=== PATIENT | female | born 1995 | race African-American/Black ===

== ENCOUNTER 2020-10-18 03:51 | Inpatient (IN) | payer MEDICAID, OTHER ==
[2020-10-18] MEDS ORDERED: ePHEDrine SULFATE 50 MG/1 ML INJ IV PRN ×2 (06:07→07:26)
[2020-10-18] MEDS ORDERED: MINERAL OIL 30 ML ORAL LIQD PO PRN (06:07)
[2020-10-18] MEDS ORDERED: LIDOCAINE (2%) 20 MG/1 ML VIAL 20 ML MDV INFILTRATI ONE (06:07)
[2020-10-18] MEDS ORDERED: AMPICILLIN/NS 2 GM/100 ML 2 GM/100 ML BAG IV ONE (06:07)
[2020-10-18] MEDS ORDERED: BUTORPHANOL 2 MG/1 ML INJ IV PRN (06:28)
[2020-10-18] MEDS ORDERED: fentaNYL 100 MCG/2 ML INJ IV PRN (06:30)
[2020-10-18 06:35] LABS: Mean Corpuscular HGB Conc 36 % (30-34); Mean Corpuscular Volume 89 fl (79-97); Platelet Count 155 K/mm3 (140-440); Red Blood Count 4.38 M/mm3 (3.65-5.03); Red Cell Distribution Width 13.8 % (13.2-15.2)
[2020-10-18] MEDS: LACTATED RINGERS 1,000 ML IV SCH ×5 (06:44→19:47)
[2020-10-18] MEDS ORDERED: ONDANSETRON 4 MG/2 ML INJ IV PRN ×3 (07:26→22:25)
[2020-10-18] MEDS ORDERED: NalbUPHINE 10 MG/1 ML INJ IV PRN (07:26)
[2020-10-18] MEDS ORDERED: LACTATED RINGERS 250 ML IV SOLN IV ONE (07:26)
[2020-10-18] MEDS ORDERED: diphenhydrAMINE 50 MG/ML VIAL IV PRN (07:26)
[2020-10-18] MEDS ORDERED: NALOXONE 2 MG/2 ML INJ IV PRN (07:26)
[2020-10-18] MEDS: fentaNYL-BUPIV 2 MCG/ML-0.125% 200 MCG/100 ML BAG EPIDURAL SCH ×2 (08:04→16:03)
--- NOTE | 2020-10-18 08:10 | Anesthesia Consultation ---
Anesthesia Consult and Med Hx Date of service: 10/18/20 - Airway Anesthetic Teeth Evaluation: Good ROM Head & Neck: Adequate Mental/Hyoid Distance: Adequate Mallampati Class: Class I Intubation Access Assessment: Good - Pulmonary Exam CTA: Yes - Cardiac Exam Cardiac Exam: RRR - Pre-Operative Health Status ASA Pre-Surgery Classification: ASA2 Proposed Anesthetic Plan: Epidural - Pulmonary Hx Smoking: No Hx Asthma: No COPD: No Hx Pneumonia: No Hx Sleep Apnea: No - Cardiovascular System Hx Hypertension: No Hx Heart Attack/AMI: No Hx Angina: No - Central Nervous System Hx Seizures: No Hx Psychiatric Problems: No - Gastrointestinal Hx Gastroesophageal Reflux Disease: No - Endocrine Hx Renal Disease: No Hx End Stage Renal Disease: No Hx Liver Disease: No Hx Insulin Dependent Diabetes: No Hx Non-Insulin Dependent Diabetes: No Hx Hypothyroidism: No Hx Hyperthyroidism: No - Hematic Hx Anemia: No Hx Sickle Cell Disease: No - Other Systems Hx Alcohol Use: No
--- NOTE | 2020-10-18 08:11 | Progress Note ---
Labor Epidural - Labor Epidural Start Time: 07:34 Stop Time: 07:47 Performed by:: JOSEPH GRUBBS ([facility]) Procedure: Patient is requesting epidural for labor and pain. H&P, labs were reviewed. Patient IDed, H&P reviewed, all questions and concerns were answered, and consent was signed. Timeout was performed at bedside. Patient in sitting position. Sterile prep and drape was performed. 3ml of 1% lidocaine skin wheal at L[3]- L [4]. 18-gauge Tuohy epidural needle was advanced to loss of resistance with saline technique 5cm. Negative CSF negative blood. Epidural catheter advanced to [10] centimeters. [negative] Aspiration [negative] test dose. Sterile dressing applied. Patient tolerated procedure.
--- NOTE | 2020-10-18 08:15 | Event Note ---
Date: 10/18/20 Assumed care of patient at 08:00 am.
--- NOTE | 2020-10-18 08:26 | Event Note ---
Date: 10/18/20 SVE /-2. Clear fluid. Small amount of bloody show. Category 1 FHR tracing. Contractions every 2 minutes; uterus soft between contractions. Patient has epidural in place.
--- NOTE | 2020-10-18 08:44 | History and Physical Report ---
History of Present Illness Date of examination: 10/18/20 Date of admission: 10/18/20 04:33 Chief complaint: Leaking of water and contractions since 04:00 am today. History of present illness: 25 year old presents with complaint of leaking of water and contractions since 04:00 today. Patient received care at [facility] and records are available. LMP 01/09/2020. EDC 10/15/2020. significant for the following: GBS positive, varicella nonimmune, vitamin D deficiency (supplemented with vitamin D), and size less than dates. labs are as follows: O+, antibody screen negative, rubella immune, varicella nonimmune, hepatitis B surface antigen negative, RPR nonreactive, HIV negative, gonorrhea negative, chlamydia negative, trichomonas negative, pap smear negative, hemoglobin electrophoresis AA, 1 hour sugar test 123, GBS positive. Past History Past Medical History: no pertinent history Past Surgical History: no surgical history [facility] History: denies: abnormal PAP smear, chlamydia, gonorrhea, hepatitis B, hepatitis C, herpes, HIV, syphilis, trichomonas Family/Genetic History: diabetes Social history: lives with family, full code. denies: smoking, alcohol abuse, prescription drug abuse, IV drug use - Obstetrical History Expected Date of Delivery: 10/15/20 Actual Gestation: 40 Week(s) 3 Day(s) : 1 Para: 0 Hx # Term Pregnancies: 0 Number of Pregnancies: 0 Spontaneous Abortions: 0 Induced : 0 Number of Living Children: 0 Medications and Allergies Allergies Allergy/AdvReac Type Severity Reaction Status Date / Time No Known Allergies Allergy Unverified 10/18/20 04:32 Home Medications Medication Instructions Recorded Confirmed Last Taken Type No Known Home Medications [No 10/18/20 10/18/20 Unknown History Reported Home Medications] Active Meds: Active Medications Butorphanol Tartrate (Butorphanol 2 Mg/1 Ml Inj) 1 mg IV Q1H PRN PRN Reason: Labor Pain Diphenhydramine HCl (Diphenhydramine 50 Mg/Ml Vial) 12.5 mg IV Q2H PRN PRN Reason: Itching Ephedrine Sulfate (Ephedrine Sulfate 50 Mg/1 Ml Inj) 10 mg IV Q2M PRN PRN Reason: Hypotension Fentanyl (Fentanyl 100 Mcg/2 Ml Inj) 100 mcg IV Q2H PRN PRN Reason: Labor Pain Last Admin: 10/18/20 06:43 Dose: 100 mcg Documented by: Lactated Ringer's (Lactated Ringers) 1,000 mls @ 125 mls/hr IV DIRECT ANU Last Admin: 10/18/20 07:20 Dose: 999 mls/hr Documented by: Fentanyl/Bupivacaine/Sodium Chlor (Fentanyl-Bupiv 2 Mcg/Ml-0.125%) 200 mcg in 100 mls @ 12 mls/hr EPIDURAL TITR ANU; Protocol Last Admin: 10/18/20 08:04 Dose: 12 mls/hr Documented by: Oxytocin/Sodium Chloride (Pitocin/Ns 30 Unit/500ml) 30 units in 500 mls @ 2 mls/hr IV TITR ANU; Protocol Ampicillin Sodium (Ampicillin/Ns 1 Gm/50 Ml) 1 gm in 50 mls @ 100 mls/hr IV Q4H ANU; Protocol Mineral Oil (Mineral Oil 30 Ml Oral Liqd) 30 ml PO QHS PRN PRN Reason: Constipation Nalbuphine HCl (Nalbuphine 10 Mg/1 Ml Inj) 2.5 mg IV Q2H PRN PRN Reason: Itching Naloxone HCl (Naloxone 2 Mg/2 Ml Inj) 0.2 mg IV Q5M PRN PRN Reason: Respiratory sedation Ondansetron HCl (Ondansetron 4 Mg/2 Ml Inj) 4 mg IV Q8H PRN PRN Reason: Nausea And Vomiting Terbutaline Sulfate (Terbutaline 1 Mg/1 Ml Inj) 0.25 mg SUB-Q ONCE PRN PRN Reason: Hyperstimulation/Hypertonicity Review of Systems All systems: negative (contractions and leaking of clear fluid from vagina) - Vital Signs Vital signs: Vital Signs Pulse BP 72 129/94 10/18/20 04:30 10/18/20 04:30 Temp Pulse Resp BP Pulse Ox 98.2 F 80 18 99/57 93 10/18/20 07:03 10/18/20 08:34 10/18/20 07:26 10/18/20 08:24 10/18/20 08:34 - Physical Exam Abdomen: Positive: normal appearance, soft. Negative: distention, tenderness, guarding, rigidity Genitourinary (Female): Positive: normal external genitalia, normal perenium. Negative: perineal/vulvar lesions (no lesions seen on careful exam with bright light) Vagina: Positive: other (clear fluid, moderate amount) Uterus: Positive: enlarged. Negative: tender Anus/Rectum: Positive: normal perianal skin Extremities: Positive: normal. Negative: tenderness, edema - Obstetrical FHR: category 1 Uterine Contraction Monitor Mode: External Cervical Dilatation: 3 Cervical Effacement Percentage: 80 station: -2 Uterine Contraction Pattern: Regular Uterine Contraction Intensity: Moderate Results Result Diagrams: 10/18/20 05:45 Abnormal lab results 10/18/20 Range/Units 05:45 MCHC 36 H (30-34) % All other labs normal. Assessment and Plan A: at 40 weeks, 3 days gestation. Early labor. Spontaneous rupture of membranes. GBS positive. P: Continuous EFM. GBS prophylaxis. Pitocin augmentation of labor if contractions space or if cervical change is not adequate.
[2020-10-18] MEDS ORDERED: OXYTOCIN DRIP 30 UNITS/500 ML BAG IV SCH ×2 (09:00→22:00)
[2020-10-18] MEDS ORDERED: FENTANYL 100 MCG/HR TD SCH (10:00)
[2020-10-18] MEDS: AMPICILLIN/NS 1 GM/50 ML 1 GM/50 ML BAG IV SCH ×2 (10:44→14:55)
--- NOTE | 2020-10-18 12:46 | Event Note ---
Date: 10/18/20 SVE /-2.
[2020-10-18] MEDS: TERBUTALINE 1 MG/1 ML INJ SUB-Q PRN ×2 (14:06→16:44)
[2020-10-18] MEDS ORDERED: ACETAMINOPHEN 325 MG TAB PO ONE (15:00)
[2020-10-18] MEDS ORDERED: GENTAMICIN/NS 80 MG/100 ML 100 ML IV SCH (16:00)
[2020-10-18] MEDS ORDERED: FAMOTIDINE 20 MG/2 ML INJ IV ONE ×3 (16:35→20:26)
[2020-10-18 16:52] LABS: Alanine Aminotransferase 10 units/L (7-56); Albumin 3.1 g/dL (3.9-5); Blood Urea Nitrogen 7 mg/dL (7-17); Calcium 8.7 mg/dL (8.4-10.2); Hemolysis Index 16
--- NOTE | 2020-10-18 17:08 | Event Note ---
Date: 10/18/20 Prolonged FHR deceleration noted at 16:33 with gradual return to baseline; lasted 5-6 minutes. Patient repositioned into left lateral position and oxygen applied. Terbutaline 0.25 mg SQ. FSE applied without difficulty to better trace FHR. SVE /-1. Consulted with Dr. Mistry re: patient and prolonged FHR deceleration and interventions taken. FHR baseline now 160 with moderate variability and no decelerations. Uterus palpates soft between contractions.
[2020-10-18 17:14] LABS: BUN/Creatinine Ratio 12
--- NOTE | 2020-10-18 17:36 | Event Note ---
<SWETA MARTIN - Last Filed: 10/18/20 17:35> Date: 10/18/20 Small amount of bloody fluid noted. Cervix is 4.5/90/-1. Uterus palpates soft. Irregular contractions. FHR tracing with mild tachycardia and moderate variability. Consulted with Dr. Mistry at 5:16 pm re: bloody fluid and minimal cervical change and suggested section. Patient has epidural and is comfortable. <YVES MISTRY - Last Filed: 10/18/20 18:37> FHT was reported to still be reassuring so will cont to observe pt
[2020-10-18] MEDS ORDERED: ceFAZolin/Water 2 GM/20 ML 2 GM/20 ML SYRINGE IV NR (18:00)
[2020-10-18] MEDS ORDERED: METOCLOPRAMIDE 10 MG/2 ML INJ IV ONE (18:17)
[2020-10-18] MEDS ORDERED: BICITRA ORAL LIQD 30ML PO ONE (18:17)
[2020-10-18] MEDS ORDERED: LACTATED RINGERS 1,000 ML IV SCH (18:30)
[2020-10-18] MEDS ORDERED: POTASSIUM CHLORIDE ER 10 MEQ TAB PO ONE (19:13)
--- NOTE | 2020-10-18 19:49 | Event Note ---
Date: 10/18/20 No more bloody fluid noted. IUPC placed per MD order to better assess contractions. Unchanged cervix. FHR 160 with moderate variability. Patient de nies pain. Uterus palpates soft between contractions.
[2020-10-18] MEDS ORDERED: BICITRA ORAL LIQD 30ML ONE (20:25)
[2020-10-18] MEDS ORDERED: METOCLOPRAMIDE 10 MG/2 ML INJ ONE (20:25)
--- NOTE | 2020-10-18 20:28 | Event Note ---
Date: 10/18/20 Prolonged deceleration of FHR noted. SVE /-1. Dr. Mistry and OR team called for stat .
[2020-10-18] MEDS ORDERED: KETOROLAC 30 MG/1 ML INJ ONE (20:32)
[2020-10-18] MEDS ORDERED: LIDOCAINE 2%/EPINEPHRINE 1:200,000 VIAL (20 ML) INFILTRATI ONE (20:32)
[2020-10-18] MEDS ORDERED: ONDANSETRON 4 MG/2 ML INJ ONE (20:32)
[2020-10-18] MEDS ORDERED: dexAMETHasone 20 MG/5 ML VIAL ONE (20:34)
[2020-10-18] MEDS ORDERED: ceFAZolin 1 GM VIAL ONE (20:44)
[2020-10-18] MEDS ORDERED: ceFAZolin 1 GM VIAL IV ONE (20:49)
[2020-10-18] MEDS ORDERED: SODIUM CHLORIDE 0.9% IRR 1,500 ML BOTTLE IR ONE (20:53)
[2020-10-18] MEDS ORDERED: BUPIVACAINE/PF (0.25%) 2.5 MG/ML 30 ML VIAL INFILTRATI ONE (21:04)
[2020-10-18] MEDS ORDERED: PHENYLEPHRINE/NS 1,000 MCG/10 ML SYRINGE (OR USE) IV ONE (21:15)
[2020-10-18] MEDS ORDERED: NALOXONE 0.4 MG/1 ML INJ IV PRN ×2 (21:50→22:25)
[2020-10-18] MEDS ORDERED: WITCH HAZEL/ GLYCERIN PAD TP PRN (21:50)
[2020-10-18] MEDS ORDERED: LANOLIN/ZINC/DIMETHICONE (LANSINOH) 7 GM TP PRN (21:50)
[2020-10-18] MEDS ORDERED: oxyCODONE /ACETAMINOPHEN 5-325MG TAB PO PRN (21:50)
[2020-10-18] MEDS ORDERED: KETOROLAC 30 MG/1 ML INJ IV PRN (21:50)
--- NOTE | 2020-10-18 21:50 | Procedure Note ---
OB Delivery Note - Delivery Date of Delivery: 10/18/20 Surgeon: YVES WHEATLEY Estimated blood loss: other (900cc) - Section Preop diagnosis: nonreassuring FHR tracing Postop diagnosis: same section procedure: section, primary low transverse Disposition: PACU Narrative: Indication: 25-year-old G1, P0 at 40 weeks and 3 days was taken for primary low transverse due to nonreassuring heart tracing remote from delivery. In addition patient bloody fluid. Prior to the surgery via t ranslator, patient fully consented for the surgery. Risks, benefits, and alternatives were all discussed with the patient including risk of bleeding, infection, and potential for injury. Patient understands and accepts these risks. Patient agrees to proceed with surgery. All questions were answered. Findings: Normal uterus, tubes and ovaries. Bloody fluid fluid with blood clots in the uterus. Partial abruption was likely. No nuchal cord. Procedure: Patient taken to the operating room and prepped and draped in the usual fashion. Pfannenstiel skin incision was made and carried down to the underlying fascia. Fascia was incised and the incision was extended bilaterally. Rectus fascia dissected off the rectus muscle both superiorly and inferiorly. Peritoneum identified tented up and entered. Peritoneal incision extended superiorly and inferiorly with good visualization of the bladder. Bladder blade was placed. Uterine incision was made and the incision was extended bilaterally. The baby was delivered in the typical vertex fashion. Baby bulb suctioned at the incision site and again after delivery. Cord was delayed clamped and cut and handed off to waiting team. The placenta was delivered spontaneously. The uterus was exteriorized and cleared of all clots and debris. Uterine incision closed with 0 Vicryl in a running locked fashion followed by a second imbricating layer of 0 Vicryl. A few additional [id number] stitches were required and then good hemostasis was noted. Her urine was blood-tinged prior to the surgery but was unchanged during the surgery. No evidence of a cystotomy. Uterus tubes and ovaries were returned to the abdominal cavity. Gutters were cleared of all clots and debris. Good hemostasis noted. Interceed placed over the uterine incision and over the lower uterine segment in the midline. Attention was turned to the rectus fascia which was reapproximated with 0 Vicryl in a running fashion. Subcutaneous tissue was irrigated and reapproximated with 2-0 Vicryl in a running fashion. Skin was closed with 4-0 Vicryl in a subcuticular fashion followed by Dermabond. The procedure was concluded at this point and the patient tolerated the procedure well. All instrument and lap counts were correct. - A at 1 minute: 8 at 5 minutes: 9 Infant Gender: Male
[2020-10-18] MEDS ORDERED: SENNOSIDES 8.6 MG TAB PO PRN (21:52)
[2020-10-18] MEDS ORDERED: SIMETHICONE 80 MG CHEW TAB PO PRN (21:52)
[2020-10-18] MEDS ORDERED: MAGNESIUM HYDROXIDE (MOM) ORAL LIQD UDC PO PRN (21:52)
--- NOTE | 2020-10-18 22:10 | Progress Note ---
Regional Anesthesia Block - Regional Anesthesia Block Start Time: 21:56 Stop Time: 22:00 Performed By:: JOSEPH GRUBBS Procedure: Patient consented for TAP block for post surgical pain management. Patient identified, monitors placed, and time out performed. Mid axillary TAP identified bilaterally via ultrasound. Skin prepped bilaterally with [chlorhexidine] and [20g stimuplex] needle advanced to the TAP. 30ml [Marcaine 0.25% with 25mcg Precedex and Decadron 5mg] injected under ultrasound guidance on the [left] side. 30ml [Marcaine 0.25% with 25mcg Precedex and Decadron 5mg] injected under ultrasound guidance on the [right] side. Negative aspiration every 5mL, Patient tolerated the procedure well. No apparent complications seen.
--- NOTE | 2020-10-18 22:10 | Anesthesia Day of Surgery ---
Anesthesia Day of Surgery - Day of Surgery Patient Examined: Yes Patient H&P Reviewed: Yes Patient is NPO: Yes Beta Blockers: No Cardiac Clearance: No Pulmonary Clearance: No Adiel's Test: N/A
[2020-10-18] MEDS ORDERED: HYDROmorphone 1 MG/1 ML INJ IV PRN (22:25)
[2020-10-18] MEDS ORDERED: PROMETHAZINE 25 MG RECT SUPP PR PRN (22:25)
[2020-10-18] MEDS ORDERED: PROMETHAZINE 25 MG TAB PO PRN (22:25)
[2020-10-19] MEDS: LACTATED RINGERS 1,000 ML IV SCH (00:27)
[2020-10-19] MEDS: AMPICILLIN/NS 2 GM/100 ML 2 GM/100 ML BAG IV SCH ×4 (00:37→13:26)
--- NOTE | 2020-10-19 10:46 | Progress Note ---
Assessment and Plan A: POD #1 P: Follow Routine PostOp Orders D/C Manzo Encourage Increased Ambulation Subjective - Subjective Date of service: 10/19/20 Patient reports: appetite normal, voiding normally (Manzo in place (adquate urine output)), pain well controlled, ambulating normally : doing well, bottle feeding Objective - Vital Signs Latest vital signs: Vital Signs Temp Pulse Resp BP BP Pulse Ox 10/19/20 06:47 98.1 F 80 18 106/67 95 10/18/20 23:30 98.1 F 90 16 125/84 94 10/18/20 22:55 98.1 F 87 16 128/88 95 10/18/20 22:50 89 16 125/90 96 10/18/20 22:35 91 H 16 126/93 95 10/18/20 22:20 93 H 16 133/94 96 10/18/20 22:05 93 H 16 129/94 97 10/18/20 22:00 89 16 121/84 97 10/18/20 21:55 89 16 111/73 96 10/18/20 21:51 98.1 F 91 H 16 106/69 97 10/18/20 20:23 108 H 98 10/18/20 20:18 97 H 100 10/18/20 20:13 100 H 99 10/18/20 20:10 100 H 137/89 10/18/20 20:08 102 H 97 10/18/20 20:03 95 H 98 10/18/20 20:01 91 H 133/82 10/18/20 19:58 103 H 99 10/18/20 19:53 92 H 97 10/18/20 19:48 96 H 98 10/18/20 19:44 99 H 126/88 10/18/20 19:43 95 H 98 10/18/20 19:42 110 H 84 10/18/20 19:40 90 129/77 10/18/20 19:38 100 H 98 10/18/20 19:34 101 H 93 10/18/20 19:33 101 H 97 10/18/20 19:28 103 H 97 10/18/20 19:23 94 H 96 10/18/20 19:19 108 H 90 10/18/20 19:18 102 H 97 10/18/20 19:13 113 H 95 10/18/20 19:11 100 H 132/83 94 10/18/20 19:09 98.1 F 18 10/18/20 19:08 98 H 96 05 19:04 108 H 129/83 10/18/20 19:03 108 H 97 10/18/20 18:58 99 H 96 10/18/20 18:53 98 H 97 10/18/20 18:48 111 H 96 10/18/20 18:45 99.9 F H 10/18/20 18:43 102 H 97 05 18:40 110 H 129/76 10/18/20 18:38 107 H 97 10/18/20 18:33 110 H 96 10/18/20 18:28 104 H 96 10/18/20 18:23 100 H 96 10/18/20 18:19 105 H 89 10/18/20 18:18 103 H 97 10/18/20 18:13 106 H 97 10/18/20 18:10 105 H 127/78 10/18/20 18:08 117 H 96 10/18/20 18:03 114 H 97 10/18/20 17:59 114 H 94 10/18/20 17:58 111 H 96 10/18/20 17:53 113 H 96 10/18/20 17:48 104 H 97 10/18/20 17:43 99 H 98 10/18/20 17:40 105 H 110/63 10/18/20 17:38 97 H 99 10/18/20 17:33 109 H 98 10/18/20 17:28 102 H 99 10/18/20 17:23 113 H 99 10/18/20 17:18 115 H 96 10/18/20 17:13 108 H 99 10/18/20 17:10 108 H 125/74 10/18/20 17:08 110 H 98 05 17:03 108 H 97 05 16:58 110 H 97 10/18/20 16:53 110 H 99 05 16:48 107 H 98 05 16:43 111 H 100 05 16:40 101 H 141/86 05 16:38 93 H 98 05 16:34 105 H 94 05 16:33 100 H 95 05 16:28 103 H 97 05 16:23 102 H 96 05 16:20 110 H 94 05 16:18 104 H 96 05 16:13 98 H 96 05 16:12 100 H 123/73 10/18/20 16:10 105 H 94 10/18/20 16:08 101 H 97 10/18/20 16:04 111 H 94 10/18/20 16:03 104 H 95 10/18/20 15:58 100 H 96 10/18/20 15:53 103 H 97 10/18/20 15:48 109 H 95 10/18/20 15:43 107 H 96 05 15:40 116 H 112/79 10/18/20 15:38 99 H 97 10/18/20 15:37 112 H 93 10/18/20 15:33 100 H 97 10/18/20 15:28 100 H 97 10/18/20 15:23 111 H 97 10/18/20 15:18 105 H 96 10/18/20 15:13 104 H 95 10/18/20 15:11 102 H 121/78 10/18/20 15:08 108 H 97 10/18/20 15:03 109 H 110/76 96 10/18/20 14:58 109 H 97 10/18/20 14:53 113 H 96 10/18/20 14:48 122 H 98 10/18/20 14:43 120 H 96 10/18/20 14:38 123 H 98 10/18/20 14:33 105 H 98 10/18/20 14:31 99.3 F 10/18/20 14:28 122 H 99 10/18/20 14:23 115 H 99 10/18/20 14:18 102 H 99 10/18/20 14:13 95 H 99 10/18/20 14:08 81 100 10/18/20 14:03 98 H 100 10/18/20 13:58 89 99 10/18/20 13:53 85 98 10/18/20 13:48 92 H 98 10/18/20 13:43 96 H 99 10/18/20 13:42 84 124/86 10/18/20 13:38 89 98 10/18/20 13:33 87 99 10/18/20 13:28 88 98 10/18/20 13:25 84 92 10/18/20 13:23 90 98 10/18/20 13:18 86 97 10/18/20 13:13 90 99 10/18/20 13:11 80 125/79 10/18/20 13:08 89 98 10/18/20 13:03 93 H 98 10/18/20 12:58 89 98 10/18/20 12:53 91 H 99 10/18/20 12:48 95 H 99 10/18/20 12:47 97 H 93 10/18/20 12:43 90 96 10/18/20 12:42 90 129/84 10/18/20 12:38 91 H 97 10/18/20 12:33 102 H 98 10/18/20 12:28 90 97 10/18/20 12:23 89 97 10/18/20 12:18 91 H 97 10/18/20 12:15 92 H 131/72 10/18/20 12:13 94 H 97 10/18/20 12:11 121 H 164/80 10/18/20 12:08 82 100 10/18/20 12:03 78 98 10/18/20 11:58 101 H 98 10/18/20 11:53 97 H 98 10/18/20 11:48 88 98 10/18/20 11:43 81 98 10/18/20 11:41 78 111/71 10/18/20 11:38 85 98 10/18/20 11:33 87 98 10/18/20 11:28 88 98 10/18/20 11:23 93 H 97 10/18/20 11:18 87 95 10/18/20 11:16 88 94 10/18/20 11:13 86 97 10/18/20 11:11 83 114/81 93 10/18/20 11:08 93 H 97 10/18/20 11:03 86 96 10/18/20 11:02 91 H 93 10/18/20 10:58 83 97 10/18/20 10:55 81 93 10/18/20 10:53 81 96 10/18/20 10:48 78 98 Intake and Output 10/18/20 10/19/20 10/19/20 22:59 06:59 14:59 Intake Total 3129.667 1043.333 Output Total 1425 1500 Balance 1704.667 -456.667 Intake: IV 3129.667 683.333 AMPICILLIN/NS 2 GM/100 ML 100 2 gm In 100 ml @ 100 mls /hr IV Q6H ANU Rx#: [id number] Lactated Ringers 1,000 ml 1129.167 583.333 @ 125 mls/hr IV DIRECT ANU Rx#:[id number] PITOCin/NS 30 UNIT/500ML 0.5 30 units In 500 ml @ 2 mls/hr IV TITR ANU Rx#: [id number] Oral 120 Intake, Free Water 240 Output: Urine 1425 1500 Indwelling Catheter 800 1500 Other: Total, Intake Amount 120 Total, Output Amount 300 1200 Estimated Blood Loss 900 - Exam Breasts: Present: normal Cardiovascular: Present: Regular rate Lungs: Present: Clear to auscultation, Normal air movement Abdomen: Present: normal appearance, soft, normal bowel sounds Uterus: Present: normal, firm, fundal height below umbilicus Extremities: Present: normal Incision: Present: normal, dry, intact - Labs Labs: Abnormal lab results 10/18/20 Range/Units 16:16 Sodium 133 L (137-145) mmol/L Potassium 3.4 L (3.6-5.0) mmol/L Carbon Dioxide 19 L (22-30) mmol/L Albumin 3.1 L (3.9-5) g/dL
[2020-10-19 11:07] LABS: Hematocrit 28.3 % (30.3-42.9); Hemoglobin 9.7 gm/dl (10.1-14.3)
--- NOTE | 2020-10-19 12:49 | Post Anesthesia Evaluation ---
- Post Anesthesia Evaluation Patient Participated: Yes Airway Patent: Yes Stable Respiratory Function: Yes Nausea/Vomiting: No Temp > 96.8F: Yes Pain Manageable: Yes Adequeate Hydration: Yes Anesthesia Complications: No Block Receding Appropriately: Yes Patient on Ventilator: No
[2020-10-19] MEDS ORDERED: IBUPROFEN 800 MG TAB PO PRN (21:50)
[2020-10-20] MEDS ORDERED: FERROUS SULFATE 325 MG TAB PO SCH (10:00)
--- NOTE | 2020-10-20 11:39 | Discharge Summary ---
Providers - Providers Date of Admission: 10/18/20 04:33 Date of discharge: 10/20/20 Attending physician: YVES WHEATLEY Primary care physician: YVES WHEATLEY Hospitalization Reason for admission: active labor, section Delivery: Procedure: primary low transverse Episiotomy: none Laceration: none Incision: normal, dry, intact Other procedures: none complications: other (Asymptomatic anemia) Discharge diagnosis: IUP at term delivered Allen baby: male Hospital course: Pt was admitted to [facility] in labor and had a primary LTCS r/t NRFHT. See H&P, delivery summary, and pp notes. Condition at discharge: Stable Disposition: - TO HOME OR SELFCARE Plan - Discharge Medications Prescriptions: Ibuprofen [Motrin 800 MG tab] 800 mg PO Q8HR PRN #30 tablet PRN Reason: Pain , Severe (7-10) oxyCODONE /ACETAMINOPHEN [Percocet 5/325] 1 tab PO Q4HR PRN #30 tab PRN Reason: Pain , Severe (7-10) - Provider Discharge Summary Activity: routine, no sex for 6 weeks, no heavy lifting 4 weeks, no strenuous exercise Diet: routine Instructions: routine Additional instructions: [] Smoking cessation referral if applicable(refer to patient education folder for contact #) [] Refer to [facility] Booklet Call your doctor immediately for: * Fever > 100.5 * Heavy vaginal bleeding ( >1 pad per hour) * Severe persistent headache * Shortness of breath * Reddened, hot, painful area to leg or breast * Drainage or odor from incision. * Keep incision clean and dry at all times and follow doctor's instructions regarding bathing/showering - Follow up plan Follow up: YVES WHEATLEY MD [Primary Care Provider] - 14 Days
[2020-10-20 15:21] VITALS: BP 106/74
== END 2020-10-20 16:20 | disposition home or self-care (01) | DRG 765 ==
LOC: TRG 03:51 → APU 03:53 → TRG 04:32 → LD 04:33 → OBSVTOIN 04:33 → OB 10-19 00:06
PROVIDERS: ADMIT Obstetrics & Gynecology; ATTEND Obstetrics & Gynecology
PROC: 10D00Z1 Extraction of Products of Conception, Low, Open Approach (ICD-10-PCS; principal; 2020-10-18)
PROC: 3E0T3BZ Introduction of Anesthetic Agent into Peripheral Nerves and Plexi, Percutaneous Approach (ICD-10-PCS; 2020-10-18)
PROC: 10H07YZ Insertion of Other Device into Products of Conception, Via Natural or Artificial Opening (ICD-10-PCS; 2020-10-18)
DX: O76 Abnormality in fetal heart rate and rhythm complicating labor and delivery (principal); D62 Acute posthemorrhagic anemia; Z3A.40 40 weeks gestation of pregnancy; Z37.0 Single live birth; O99.824 Streptococcus B carrier state complicating childbirth; O99.284 Endocrine, nutritional and metabolic diseases complicating childbirth; E55.9 Vitamin D deficiency, unspecified; Z20.822 Contact with and (suspected) exposure to COVID-19; O90.81 Anemia of the puerperium
CPT/HCPCS: 36415; 80053; 85014; 85018; 85027; 86592; 86850; 86900; 86901; 99211; G0378; C1765; G0463; J0290; J0690; J1100; J1580; J1885; J2370; J2405; J2590; J2765; J3010; J3105; J3490; J7120; U0003